=== PATIENT | male | born 1985 | race Caucasian/White ===

== ENCOUNTER 2016-10-10 18:32 | Emergency (ER) | payer SELFPAY ==
[~2016-10-10] VITALS: Ht 185.4 cm; Wt 98.0 kg
[2016-10-10 18:36] VITALS: BP 125/84; PULSE 95; RESP 16; TEMP 98.5; O2SAT 98
[2016-10-10] MEDS ORDERED: TETANUS/DIPHTHERIA TOXOID ADULT 0.5 ML VIAL IM ONE (18:45)
[2016-10-10] MEDS ORDERED: LIDOCAINE 1%/EPINEPHrine 1:100,000 SOLN 20 ML VIAL INFIL ONE (18:45)
--- NOTE | 2016-10-10 18:47 | PD ---
HPI Chief Complaint: Laceration/Skin Injury Time Seen by Provider: 18:45 Travel History International Travel<30 days: No Contact w/Intl Traveler<30days: No Traveled to known affect area: No History of Present Illness HPI Patient comes in complaining of laceration to his left anterior ch that occurred shortly prior to arrival. Patient states he was trying to move a piece of wood in his front yard when he slipped into a hole hitting a metal pipe causing a laceration that was in the hole. Patient apply dressing prior coming to the emergency department. Reports he is uncertain of his last tetanus shot. Patient reports pain around site without radiation. Denies any numbness or tingling anywhere. PFSH Past Medical History Medical History: Denies Significant Hx Social History Alcohol Use: No Tobacco Use: Yes Substance Use: No Allergies-Medications (Allergen,Severity, Reaction): Coded Allergies: No Known Allergies (Unverified , 10/10/16) Reported Meds & Prescriptions Reported Meds & Active Scripts Active Keflex (Cephalexin) 500 Mg Cap 500 Mg PO Q12H 7 Days Review of Systems Except as stated in HPI: all other systems reviewed are Neg Physical Exam Narrative GENERAL: Well-developed, well nourished, in no acute distress, and non-ill appearing. SKIN: Warm and dry. Laceration distal left ch. HEAD: Atraumatic. Normocephalic. EYES: Pupils equal and round. EOMI. No scleral icterus. No injection or drainage. ENT: No nasal bleeding or discharge. Mucous membranes pink and moist. NECK: Trachea midline. Supple. No nuclear rigidity. RESPIRATORY: No accessory muscle use. No respiratory distress. MUSCULOSKELETAL: No obvious deformities. No clubbing. No cyanosis. No edema. Full range of motion. NEUROLOGICAL: Awake and alert. No obvious cranial nerve deficits. Motor grossly within normal limits. Normal speech. PSYCHIATRIC: Appropriate mood and affect; insight and judgment normal. Data Data Last Documented VS Vital Signs Date Time Temp Pulse Resp B/P Pulse Ox O2 Delivery O2 Flow Rate FiO2 10/10/16 18:55 16 10/10/16 18:36 98.5 95 125/84 98 Orders Lidocai-Epi 1%-1:100,000 Inj (Xylocaine- (10/10/16 18:45) Tetanus/Diphtheria Tox Adult (Tetanus/Di (10/10/16 18:45) MDM Medical Decision Making Medical Screen Exam Complete: Yes Emergency Medical Condition: Yes Differential Diagnosis Laceration, abrasion, skin tear, other Narrative Course The patient suffered laceration to the extremity. There was no evidence to suggest foreign bodies by history and exam. Visual and tactile exams were unremarkable. There was no evidence of neurovascular injury. The patient had a normal distal vascular exam, and had full normal motor and sensory exams. There was also no evidence or tendon injury, with normal distal full range of motions , flexion, extension, abduction, adduction and opponens. There was no evidence of local joint space involvement at this time. The patient was irrigated with copious sterile normal saline and primary repair was performed. Please see procedure note. The patient was given signs and symptom warnings for infection, such as increasing pain, redness, swelling, associated heat, pus or fever. The patient was warned of possible unseen foreign body and instructed to return immediately if signs or symptoms develop. The patient was given instructions for timely follow up and for removal. The patient agreed with plan of care. Procedures Procedure Narrative LACERATION REPAIR LOCATION: Left distal ch LENGTH: Approximately 6 cm crescent shaped NUMBER OF STITCHES/VALENTINA: 8 Valentina REPAIR: Verbal consent was obtained. The area of the laceration was cleaned and prepped. The laceration was infiltrated with light chemotherapy. The wound was copiously irrigated and explored without evidence of foreign body, bony involvement, ligament injury, tendon injury, or neurovascular injury. The wound was closed using valentina. This was a single layer repair. A sterile dressing was applied by nurse. The patient was advised to keep the affected area as clean and dry as possible using soap and water. There were no complications. Patient tolerated the procedure well. Diagnosis Primary Impression: Laceration Patient Instructions: General Instructions, Laceration (ED), Staple Care (ED) Additional Instructions: Follow-up with your primary care physician or return here in 2 weeks for staple removal. Take all medication as prescribed. Keep wound dry and clean as possible using soap and water. Use Neosporin to promote healing. Return to the emergency department if symptoms get worse. Med/Other Pt SpecificInfo: Prescription(s) given Scripts Cephalexin (Keflex)500 Mg Hpl362 Mg PO Q12H 7 Days Ref 0 Prov:Tristan Zhao MD 10/10/16 Disposition: 01 DISCHARGE HOME Condition: Stable Ramses Martinez Oct 10, 2016 18:47
[2016-10-10] MEDS ORDERED: CEPH-460 PO (19:03)
== END 2016-10-10 19:17 | disposition home or self-care (01) ==
LOC: PHEFT 18:32
DX: S81.812A Laceration without foreign body, left lower leg, initial encounter (principal); W17.2XXA Fall into hole, initial encounter; Y93.89 Activity, other specified; Y92.007 Garden or yard of unspecified non-institutional (private) residence as the place of occurrence of the external cause; Z23 Encounter for immunization
CPT/HCPCS: 12002; 90471; 90714

== ENCOUNTER 2017-04-15 17:53 | Emergency (ER) | payer SELFPAY ==
[~2017-04-15] VITALS: Ht 185.4 cm; Wt 89.5 kg
[~2017-04-15 17:53] MED LIST: CEPH-460 PO
[2017-04-15 18:06] VITALS: BP 130/61; PULSE 112; RESP 16; TEMP 98.3; O2SAT 97
--- NOTE | 2017-04-15 18:15 | PD ---
HPI Chief Complaint: Wound/Suture/Staple Re-Check Time Seen by Provider: 18:07 Travel History International Travel<30 days: No Contact w/Intl Traveler<30days: No Traveled to known affect area: No History of Present Illness HPI 32-year-old male presents emergency department for evaluation of a wound recheck of his left lower extremity. Patient reports he had a laceration in September of this year which was repaired with sutures in another hospital. He reports he has had no pain, swelling, drainage the site. He presents here requesting "recheck" of the wound. He is also requesting some form of documentation to prove his visit today. He has no medical complaint. [facility] Past Medical History Medical History: Denies Significant Hx Social History Alcohol Use: No Tobacco Use: Yes (08/25 ppd) Substance Use: No Allergies-Medications (Allergen,Severity, Reaction): Coded Allergies: No Known Allergies (Unverified , 04/15/17) Reported Meds & Prescriptions Reported Meds & Active Scripts Active No Active Prescriptions or Reported Medications Review of Systems Except as stated in HPI: all other systems reviewed are Neg Physical Exam Narrative GENERAL: Well-nourished, well-developed patient. SKIN: Focused skin assessment warm/dry. Well-healed laceration left anterior lower extremity. No evidence of infection HEAD: Normocephalic. CARDIOVASCULAR: Regular rate and rhythm without murmurs, gallops, or rubs. RESPIRATORY: Breath sounds equal bilaterally. No accessory muscle use. MUSCULOSKELETAL: No cyanosis, or edema. Data Data Last Documented VS Vital Signs Date Time Temp Pulse Resp B/P (MAP) Pulse Ox O2 Delivery O2 Flow Rate FiO2 04/15/17 18:06 98.3 112 16 130/61 (84) 97 MDM Medical Decision Making Medical Screen Exam Complete: Yes Emergency Medical Condition: Yes Differential Diagnosis wound recheck Narrative Course 32-year-old male presents emergency department for evaluation of a wound recheck of his left lower extremity. Patient reports he had a laceration in September of this year which was repaired with sutures in another hospital. He reports he has had no pain, swelling, drainage the site. He presents here requesting "recheck" of the wound. The area is well healed. There is no induration, erythema, cellulitis, lymphangitis. He was brought to my attention by nursing staff the patient needed documentation of his visit today therefore came into the emergency department. He has no other medical complaint. Diagnosis Primary Impression: Encounter for wound re-check Referrals: Primary Care Physician Scripts No Active Prescriptions or Reported Meds Disposition: DISCHARGE HOME Condition: Stable Valerie Paulino Apr 15, 2017 18:15
== END 2017-04-15 18:25 | disposition home or self-care (01) ==
LOC: PHEFT 17:53
DX: Z09 Encounter for follow-up examination after completed treatment for conditions other than malignant neoplasm (principal); F17.210 Nicotine dependence, cigarettes, uncomplicated
CPT/HCPCS: 99281